=== PATIENT | male | born 1970 | race Caucasian/White ===

== ENCOUNTER 2019-04-08 20:13 | Emergency (ER) | payer MEDICAID, MEDICARE ==
[~2019-04-08] VITALS: Wt 81.8 kg
[~2019-04-08 20:13] MED LIST: HYDR-3980 PO
[2019-04-08 20:39] VITALS: BP 169/106; PULSE 90; RESP 16
== END 2019-04-08 20:40 | disposition left against medical advice (07) ==
LOC: E/R 20:13
DX: Z53.21 Procedure and treatment not carried out due to patient leaving prior to being seen by health care provider (principal)